=== PATIENT | female | born 1995 | race African-American/Black ===

== ENCOUNTER 2016-08-29 08:37 | Inpatient (IN) | payer OTHER ==
[~2016-08-29] VITALS: Ht 167.6 cm; Wt 68.5 kg
[2016-08-29 09:01] VITALS: BP 125/87
[2016-08-29 09:14] LABS: ABSOLUTE BASOPHIL COUNT 0 /CUMM (0.0-0.2); ABSOLUTE EOSINOPHIL COUNT 0.1 /CUMM (0.0-0.7); ABSOLUTE LYMPH COUNT 2.7 /CUMM (1.2-3.4); ABSOLUTE MONOCYTE COUNT 0.7 /CUMM (0.10-0.60); BASOPHIL % 0.2 % (0.0-2.0); EOSINOPHIL % 0.8 % (0-5); GRANULOCYTE % 66.5 % (42.2-75.2); HEMATOCRIT 30.9 % (37-47); MEAN CORPUSCULAR HGB 22.6 PG (27.0-31.0); MEAN CORPUSCULAR HGB CONC 31.8 G/DL (33.0-37.0); MEAN CORPUSCULAR VOLUME 71.1 FL (81.0-99.0); MEAN PLATELET VOLUME 8.2 FL (7.4-10.4); PLATELET COUNT 467 /CUMM (130-400); RBC DISTRIBUTION WIDTH 16.6 % (11.5-14.5); RED BLOOD CELL CT 4.34 /CUMM (4.20-5.40); WHITE BLOOD CELL COUNT 10.6 /CUMM (4.8-10.8)
--- NOTE | 2016-08-29 12:11 | History & Physical ---
General Information and HPI MD Statement: I have seen and personally examined SIGRID EMERY and documented this H&P. The patient is a 20 year old female at 40[] weeks and2 [] days gestation who presented with a chief complaint of []. Wants to have her baby History of Present Illness: 21-year-old 2 para 1001 at 40-2/7 weeks gestation had adequate care with me who is sick and tired of being she is 3-4 cm has inducible cervix and would like an induction we've discussed risks of induction with Pitocin i.e. 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: 1 Last Menstrual Period: 12/05/2015 Past dna sequencing associate History: none (normal spontaneous vaginal del) Surgical History Pertinent Surgical History: none (none) Past Family/Social History Psychosocial History Smoking Status: Never Smoked Review of Systems Review of Systems: -13 point review of systems as stated in the HPI Exam & Diagnostic Data Last 24 Hrs of Vital Signs/I&O Vital Signs Date Time Temp Pulse Resp B/P B/P Pulse O2 O2 Flow FiO2 Mean Ox Delivery Rate 08/29 0901 125/87 Intake & Output 08/29 1600 08/29 0800 08/29 0000 Intake Total Output Total Balance Patient 151 lb Weight Obstetric Exam Wgt Gained During : 12 Pelvimetry: Tested to 6 pounds Dilation (cm): 5 Effacement (%): 80 Station: 0 Membranes: AROM Fluid: unknown Fundal Height (cm): 38 Multiple Gestation? No Contractions: Every 2-3 minutes Infant #1 - FHR Baseline: 120 Category: 1 Estimated Weight: 3600 Presentation: Vertex Patient for Induction? Yes Patel Score Patel Score Response Value Cervix Position: anterior 2 Cervix Consistency: soft 2 Cervix Effacement: >80% 3 Cervix Dilation: 3-4 cm 2 Total 9 Physical Exam: Pleasant female [place] HEENT anicteric Abdomen soft estimated weight 3600 g Lungs clear Extremities +1 edema Labs Blood Type & Rh: O+ Antibody Screen: Negative Hct/Hgb & Platelets #1: 382 Hct/Hgb & Platelets #2: Rubella: Examined VDRL #1: Nonreactive VDRL #2: Nonreactive HbsAg: Negative HIV #1: Negative HIV #2 Negative 1 Hr P Group B Strep: Negative Initial Ultrasound: Normal Anatomy Ultrasound: Absolutely normal Genetic Testing: Negative Assessment/Plan As Ranked By This Provider Problem List: 1. Core Measures/Miscellaneous Venous Thromboembolism VTE Risk Factors: / VTE Contraindications: No Contraindications VTE Diagnosis: No Beta Luis Is Beta Luis a Home Med? No Antibiotics Is Patient on Antibiotics? No Attending MD Review Statement Attending Statement Attending MD Statement: examined this patient
--- NOTE | 2016-08-29 16:08 | Labor & Delivery Summary ---
Delivery Summary Vaginal Delivery: Vaginal: spontaneous Placenta: Placenta: spontanteous, normal, 3 vessel Additional Comments: Normal spontaneous vaginal delivery viable male infant over second-degree laceration suction with bulb syringe cord clamped after pulse decreased three- vessel cord noted placenta by continuous cord traction second-degree laceration repaired in layers with 30 under epidural. Rh+
[2016-08-30 08:49] LABS: ABSOLUTE BASOPHIL COUNT 0 /CUMM (0.0-0.2); ABSOLUTE EOSINOPHIL COUNT 0.2 /CUMM (0.0-0.7); ABSOLUTE GRANULOCYTE CT 8.3 /CUMM (1.4-6.5); ABSOLUTE LYMPH COUNT 2.8 /CUMM (1.2-3.4); ABSOLUTE MONOCYTE COUNT 0.9 /CUMM (0.10-0.60); BASOPHIL % 0.2 % (0.0-2.0); EOSINOPHIL % 1.3 % (0-5); HEMATOCRIT 26.8 % (37-47); MEAN CORPUSCULAR HGB 22.9 PG (27.0-31.0); MEAN CORPUSCULAR HGB CONC 32.2 G/DL (33.0-37.0); MEAN CORPUSCULAR VOLUME 71.2 FL (81.0-99.0); MEAN PLATELET VOLUME 8.3 FL (7.4-10.4); PLATELET COUNT 370 /CUMM (130-400); RBC DISTRIBUTION WIDTH 17.1 % (11.5-14.5); RED BLOOD CELL CT 3.77 /CUMM (4.20-5.40); WHITE BLOOD CELL COUNT 12.3 /CUMM (4.8-10.8)
[2016-08-31] MEDS ORDERED: IBUPROFEN800 M1 PO (12:09)
== END 2016-08-31 12:30 | DRG 560 ==
LOC: GNO 08:37
PROVIDERS: ADMIT Specialist
DX: O70.1 Second degree perineal laceration during delivery (principal); Z3A.40 40 weeks gestation of pregnancy; Z37.0 Single live birth
CPT/HCPCS: GNOS; 36415; 81001; 87086; J7120